=== PATIENT | male | born 1980 | race Caucasian/White ===

== ENCOUNTER 2017-03-18 15:32 | Emergency (ER) | payer MEDICAID ==
[~2017-03-18] VITALS: Ht 180.3 cm; Wt 103.9 kg
[2017-03-18 16:21] VITALS: Ht 180.3 cm; Wt 103.9 kg
[2017-03-18 18:14] VITALS: BP 134/96
== END 2017-03-18 18:14 | disposition home or self-care (01) ==
LOC: ED 15:32
DX: B34.9 Viral infection, unspecified (principal)